=== PATIENT | female | born 1980 | race American Indian/Alaskan Native ===

== ENCOUNTER 2017-01-22 10:44 | Emergency (ER) | payer BC, OTHER ==
[2017-01-22 10:44] VITALS: BMI 31.8
[2017-01-22 11:08] VITALS: BP 146/66; PULSE 78; RESP 18; TEMP 98.4; O2SAT 99
[2017-01-22] MEDS ORDERED: Sodium Chloride 0.9% 1,000 ML IV STA (11:18)
--- NOTE | 2017-01-22 11:43 | ED PDOC ---
Arrival/HPI - General Chief Complaint: GI Problem Time Seen by Provider: 01/22/17 11:12 Historian: Patient - History of Present Illness Narrative History of Present Illness (Text): 01/22/17 11:13 A 36 year old female presents to the emergency department complaining of nausea , vomiting, abdominal pain and vaginal spotting since this morning. Patient reports vomit is non bloody non bilious and abdominal pain is localized to the epigastric region. Patient denies any fever, chest pain, diarrhea, or other complaints at this time. She notes her last menstrual cycle was 2 months ago. PMD: None Time/Duration: 1-3 hours Symptom Onset: Sudden Symptom Course: Unchanged Quality: Other Activities at Onset: Rest Context: Home Past Medical History - Provider Review Nursing Documentation Reviewed: Yes - Infectious Disease Hx of Infectious Diseases: None - Tetanus Immunization Tetanus Immunization: Unknown - Reproductive Menopause: No - Cardiac Hx Cardiac Disorders: (denies) - Pulmonary Hx Respiratory Disorders: (denies) - Neurological Hx Neurological Disorder: (denies) - HEENT Hx HEENT Disorder: (enies) - Renal Hx Renal Disorder: (denies) - Endocrine/Metabolic Hx Endocrine Disorders: (denies) - Hematological/Oncological Hx Blood Disorders: (denies) - Integumentary Hx Dermatological Disorder: (denies) - Musculoskeletal/Rheumatological Hx Musculoskeletal Disorders: (right ankle fx 04/22/2013) Hx Falls: Yes (fell today) - Gastrointestinal Hx Gastrointestinal Disorders: (denies) - Genitourinary/Gynecological Hx Genitourinary Disorders: (denies) - Psychiatric Hx Depression: No Hx Emotional Abuse: No Hx Physical Abuse: No Hx Substance Use: No - Anesthesia Hx Anesthesia: No - Suicidal Assessment Feels Threatened In Home Enviroment: No Family/Social History - Physician Review Nursing Documentation Reviewed: Yes Family/Social History: Unknown Family HX Smoking Status: Never Smoked Hx Alcohol Use: No (social) Hx Substance Use: No Hx Substance Use Treatment: No Allergies/Home Meds Allergies/Adverse Reactions: Allergies No Known Allergies Allergy (Verified 04/22/13 15:07) Home Medications: Home Meds Medication Instructions Recorded Confirmed No Known Home Med 01/22/17 01/22/17 Review of Systems - Physician Review All systems were reviewed & negative as marked: Yes - Review of Systems Constitutional: absent: Fevers Cardiovascular: absent: Chest Pain Gastrointestinal: Abdominal Pain, Nausea, Vomiting Genitourinary Female: Vaginal Bleeding Physical Exam Vital Signs Reviewed: Yes Vital Signs Temp Pulse Resp BP Pulse Ox 01/22/17 11:00 98.4 F 78 18 146/66 99 Temperature: Afebrile Blood Pressure: Normal Pulse: Regular Respiratory Rate: Normal Appearance: Positive for: Well-Appearing, Non-Toxic, Comfortable Pain Distress: None Mental Status: Positive for: Alert and Oriented X 3 - Systems Exam Head: Present: Atraumatic, Normocephalic Pupils: Present: PERRL Extroacular Muscles: Present: EOMI Conjunctiva: Present: Normal Mouth: Present: Moist Mucous Membranes Neck: Present: Normal Range of Motion Respiratory/Chest: Present: Clear to Auscultation, Good Air Exchange. No: Respiratory Distress, Accessory Muscle Use Cardiovascular: Present: Regular Rate and Rhythm, Normal S1, S2. No: Murmurs Abdomen: Present: Tenderness (mild epigastric tenderness with palpation), Normal Bowel Sounds. No: Distention, Peritoneal Signs Back: Present: Normal Inspection Upper Extremity: Present: Normal Inspection. No: Cyanosis, Edema Lower Extremity: Present: Normal Inspection. No: Edema Neurological: Present: GCS=15, CN II-XII Intact, Speech Normal Skin: Present: Warm, Dry, Normal Color. No: Rashes Psychiatric: Present: Alert, Oriented x 3, Normal Insight, Normal Concentration Medical Decision Making ED Course and Treatment: 01/22/17 11:13 Impression: A 36 year old female with abdominal pain, nausea, vomiting and vaginal spotting. Differential Diagnosis include but are not limited to: gastritis Plan: -- EKG -- Chest X-ray -- Labs -- Urinalysis -- Protonix, Zofran and IV Fluids -- Reassess and disposition Prior Visits: Notes and results from previous visits were reviewed. The patient last presented to the emergency department on 05/21/14 for evaluation of nausea, vomiting and weakness. Progress Notes: 01/22/17 12:00 Patient left without treatment. 01/22/17 13:40 pt elped from er prior to lab results - Lab Interpretations Lab Results: Lab Results 01/22/17 11:10: Urine Color Yellow, Urine Appearance Clear, Urine pH 6.0, Ur Specific [place] <= 1.005, Urine Protein Negative, Urine Glucose (UA) Negative, Urine Ketones Negative, Urine Blood Negative, Urine Nitrate Negative, Urine Bilirubin Negative, Urine Urobilinogen 0.2, Ur Leukocyte Esterase Negative, Urine HCG, Qual Negative I have reviewed the lab results: Yes - RAD Interpretation Radiology Orders: 01/22/17 11:17 CHEST PORTABLE [RAD] Stat - Medication Orders Current Medication Orders: Discontinued Medications Sodium Chloride (Sodium Chloride 0.9%) 1,000 mls @ 999 mls/hr IV .Q1H1M STA Stop: 01/22/17 12:18 Ondansetron HCl (Zofran Inj) 4 mg IVP STAT STA Stop: 01/22/17 11:18 Pantoprazole Sodium (Protonix Inj) 40 mg IVP STAT STA Stop: 01/22/17 11:18 - Scribe Statement The provider has reviewed the documentation as recorded by the Reinaldo Alberto Provider Scribe Attestation: All medical record entries made by the Scribe were at my direction and personally dictated by me. I have reviewed the chart and agree that the record accurately reflects my personal performance of the history, physical exam, medical decision making, and the department course for this patient. I have also personally directed, reviewed, and agree with the discharge instructions and disposition. Disposition/Present on Arrival - Present on Arrival Any Indicators Present on Arrival: No History of DVT/PE: No History of Uncontrolled Diabetes: No Urinary Catheter: No History of Decub. Ulcer: No History Surgical Site Infection Following: None - Disposition Have Diagnosis and Disposition been Completed?: Yes Diagnosis: Abdominal pain Disposition: ELOPEMENT - ER ONLY Disposition Time: 12:00 Condition: UNKNOWN
--- NOTE | 2017-01-22 11:54 | RAD ---
HISTORY: cp COMPARISON: Chest x-ray performed 04/22/13 TECHNIQUE: Chest, one view. FINDINGS: Examination limited by habitus and hypoinflation. LUNGS: No focal consolidation. Please note that chest x-ray has limited sensitivity for the detection of pulmonary masses. PLEURA: No significant pleural effusion identified. No definite pneumothorax . CARDIOVASCULAR: Heart size appears top normal. OSSEOUS STRUCTURES: No acute osseous abnormality identified. VISUALIZED UPPER ABDOMEN: Unremarkable. OTHER FINDINGS: None. IMPRESSION: No focal consolidation, significant pleural effusion, or definite pneumothorax identified.
[2017-01-22 12:15] LABS: URINE BILIRUBIN NEGATIVE (NEGATIVE); URINE BLOOD NEGATIVE (NEGATIVE); URINE GLUCOSE (UA) NEGATIVE (NEGATIVE); URINE KETONE NEGATIVE (NEGATIVE); URINE LEUKOCYTE ESTERASE NEGATIVE Leu/uL (NEGATIVE); URINE PROTEIN NEGATIVE mg/dL (<30 mg/dL); URINE UROBILINOGEN 0.2 E.U./dL (<1 E.U./dL)
[2017-01-22 12:19] LABS: URINE APPEARANCE CLEAR (CLEAR); URINE COLOR YELLOW (YELLOW)
== END 2017-01-22 11:56 | disposition left against medical advice (07) ==
LOC: ED 10:44
DX: R10.9 Unspecified abdominal pain (principal)

== ENCOUNTER 2017-04-02 02:11 | Emergency (ER) | payer OTHER ==
[2017-04-02 02:33] VITALS: O2SAT 99; BMI 31.4
--- NOTE | 2017-04-02 02:42 | ED PDOC ---
Arrival/HPI - General Historian: Patient - History of Present Illness Time/Duration: 24 hours Symptom Onset: Sudden Symptom Course: Worsening Quality: Cramping Severity Level: 7 Context: Sitting <Maria Victoria Copeland - Last Filed: 04/02/17 04:53> <MeyDana - Last Filed: 04/02/17 05:20> - General Chief Complaint: Lower Extremity Problem/Injury Time Seen by Provider: 04/02/17 02:23 - History of Present Illness Narrative History of Present Illness (Text): 04/02/17 02:43 Patient is a 26 y/o with pmh of dislocated right ankle presenting with b/l lower extremities edema for 1 day. patient states she was sitting in her living room when she felt b/l ankle pain, when she looked down she saw they were swollen. patient states the ankle pain extends to the leg as well, R>L. Patient denies h/o DVT/PEs, denies recent long distance travels, denies cp, sob, n/v/d, denies fever or chills. Denies h/o heart problems. Denies contraceptive use. States she's mostly sedentary. (Maria Victoria Copeland) Past Medical History - Provider Review Nursing Documentation Reviewed: Yes - Travel History Have you recently traveled outside [place] w/in the past 3 mons?: No - Past History Past History: No Previous - Infectious Disease Hx of Infectious Diseases: None - Tetanus Immunization Tetanus Immunization: Unknown - Cardiac Hx Cardiac Disorders: (denies) - Pulmonary Hx Respiratory Disorders: (denies) - Neurological Hx Neurological Disorder: (denies) - HEENT Hx HEENT Disorder: (enies) - Renal Hx Renal Disorder: (denies) - Endocrine/Metabolic Hx Endocrine Disorders: (denies) - Hematological/Oncological Hx Blood Disorders: (denies) - Integumentary Hx Dermatological Disorder: (denies) - Musculoskeletal/Rheumatological Hx Musculoskeletal Disorders: (right ankle fx 04/22/2013) Hx Falls: Yes (fell today) - Gastrointestinal Hx Gastrointestinal Disorders: (denies) - Genitourinary/Gynecological Hx Genitourinary Disorders: (denies) - Psychiatric Hx Depression: No Hx Emotional Abuse: No Hx Physical Abuse: No Hx Substance Use: No - Anesthesia Hx Anesthesia: No - Suicidal Assessment Feels Threatened In Home Enviroment: No <Maria Victoria Copeland - Last Filed: 04/02/17 04:53> Family/Social History Family/Social History: No Known Family HX Smoking Status: Never Smoked Hx Alcohol Use: No (social) Hx Substance Use: No Hx Substance Use Treatment: No <Maria Victoria Copeland - Last Filed: 04/02/17 04:53> Allergies/Home Meds <Maria Victoria Copeland - Last Filed: 04/02/17 04:53> <Dana Mathias - Last Filed: 04/02/17 05:20> Allergies/Adverse Reactions: Allergies No Known Allergies Allergy (Verified 04/02/17 02:38) Review of Systems - Review of Systems Constitutional: Normal Eyes: Normal ENT: Normal Respiratory: Normal Cardiovascular: Normal Gastrointestinal: Normal Genitourinary Female: Normal Musculoskeletal: Joint Swelling, Other (ankle and leg pain.) Skin: Normal Neurological: Normal Endocrine: Normal Hemo/Lymphatic: Normal Psychiatric: Normal <Maria Victoria Copeland - Last Filed: 04/02/17 04:53> Physical Exam Vital Signs Reviewed: Yes Temperature: Afebrile Blood Pressure: Normal Pulse: Regular Respiratory Rate: Normal Appearance: Positive for: Well-Appearing, Non-Toxic, Comfortable Pain Distress: None Mental Status: Positive for: Alert and Oriented X 3 - Systems Exam Head: Present: Atraumatic, Normocephalic Pupils: Present: PERRL Extroacular Muscles: Present: EOMI Conjunctiva: Present: Normal Mouth: Present: Dry Neck: Present: Normal Range of Motion Respiratory/Chest: Present: Clear to Auscultation, Good Air Exchange. No: Respiratory Distress, Accessory Muscle Use, Wheezes, Rales, Rhonchi, Tachypneic Cardiovascular: Present: Regular Rate and Rhythm, Normal S1, S2. No: Murmurs Abdomen: Present: Normal Bowel Sounds. No: Tenderness, Distention Upper Extremity: Present: Normal Inspection. No: Cyanosis, Edema Lower Extremity: Present: Edema (b/l ankle and legs. ), CALF TENDERNESS (on the right), NORMAL PULSES, Normal ROM (due to pain at the right ankle. ), Garrett's Sign (right + ), Tenderness (right ankle), Capillary Refill < 2 s. No: Erythema , Temperature Abnormalties Neurological: Present: GCS=15 Skin: Present: Warm, Dry, Normal Color. No: Rashes Psychiatric: Present: Alert, Oriented x 3, Normal Insight, Normal Concentration <Maria Victoria Copeland - Last Filed: 04/02/17 04:53> Medical Decision Making Re-evaluation Time: 04:30 Reassessment Condition: Improving,but remains with symptoms - Lab Interpretations I have reviewed the lab results: Yes Interpretation: All labs normal <Maria Victoria Copeland - Last Filed: 04/02/17 04:53> <Dana Mathias - Last Filed: 04/02/17 05:20> ED Course and Treatment: 04/02/17 02:53 Patient is 36 y/o with h/o right ankle dislocation presenting with b/l leg and ankle edema, and pain. R/O DVT, lymphedema, versus dependent edema, venous insufficiency, renal failure , liver cirrhosis versus trauma versus chf. Less likely cellulites. Plan: cbc, cmp, bnp, trop. ekg chest x-ray, right ankle x-ray b/l venous Doppler Tylenol for pain and reevaluate. Discussed with Dr Mathias. (Maria Victoria Copeland) 04/02/2017 03:45 Bilateral venous doppler results are negative. 04/02/17 05:19 Patient seen and examined with b/L ankle swelling. No pmhx except ankle injury. No cardiopulmonary complaints. Doppler negative. CBC unremarkable - will d/c o nsaid. (Dana Mathias) - Lab Interpretations Lab Results: 04/02/17 02:57 Lab Results 04/02/17 02:57: WBC 4.4 L D, RBC 3.74, Hgb 12.5, Hct 37.3, MCV 99.7, MCH 33.4, MCHC 33.5, RDW 13.7, Plt Count 234, MPV 8.8, Neutrophils % (Manual) 36 L, Band Neutrophils % 1, Lymphocytes % (Manual) 43 H, Monocytes % (Manual) 16 H, Eosinophils % (Manual) 2, Basophils % (Manual) 2 H, Platelet Evaluation Normal - RAD Interpretation Narrative RAD Interpretations (Text): 04/02/17 04:36 Right ankle x-ray with no fracture noted. Normal chest x-ray- no pleural effusion or pulm congestion. LE doppler with no DVTs. (Maria Victoria Copeland) Radiology Orders: 04/02/17 02:36 DUPLEX LOWER EXTRM VEIN BILAT [US] Stat 04/02/17 02:40 ANKLE RIGHT 3 VIEWS ROUTINE [RAD] Stat 04/02/17 02:46 CHEST PORTABLE [RAD] Stat - Medication Orders Current Medication Orders: Discontinued Medications Acetaminophen (Tylenol 325mg Tab) 650 mg PO STAT STA Stop: 04/02/17 02:40 Last Admin: 04/02/17 02:58 Dose: 650 mg - PA / OIL WINTERIZER / Resident Statement FELICITAS has reviewed & agrees with the documentation as recorded. FELICITAS has examined the patient and agrees with the treatment plan. <Dana Mathias - Last Filed: 04/02/17 05:20> Disposition/Present on Arrival - Present on Arrival Any Indicators Present on Arrival: No History of DVT/PE: No History of Uncontrolled Diabetes: No Urinary Catheter: No History of Decub. Ulcer: No History Surgical Site Infection Following: None - Disposition Have Diagnosis and Disposition been Completed?: Yes Disposition Time: 04:25 Patient Plan: Discharge <Maria Victoria Copeland - Last Filed: 04/02/17 04:53> <Dana Mathias - Last Filed: 04/02/17 05:20> - Disposition Diagnosis: Ankle pain, Leg edema Disposition: HOME/ ROUTINE Condition: STABLE Discharge Instructions (ExitCare): Leg Edema (ED), Swollen Joint (ED) Additional Instructions: Take Motrin as need for pain every 6 to 8 hrs. Keep your legs elevated, use compression stocking. Go tot he nearest emergency room if you experience chest pain, sob, fever. Prescriptions: Ibuprofen [Motrin] 600 mg PO Q6 PRN #30 tab PRN Reason: Pain, Moderate (4-7) Referrals: [facility] [place] [facility] [place] - Follow up with primary
[2017-04-02 03:05] LABS: HEMATOCRIT 37.3 % (36.0-48.0); MEAN CELL VOLUME 99.7 fL (80.0-105.0); MEAN CORPUSCULAR HEMOGLOBIN 33.4 pg (25.0-35.0); MEAN CORPUSCULAR HGB CONC 33.5 g/dl (31.0-37.0); MEAN PLATELET VOLUME 8.8 fl (7.0-11.0); PLATELET COUNT 234 10^3/uL (120.0-450.0); RED CELL DISTRIBUTION WIDTH 13.7 % (11.5-14.5); WHITE BLOOD COUNT 4.4 10^3/ul (4.5-11.0)
[2017-04-02 03:07] LABS: ADD MANUAL DIFF? YES
[2017-04-02 03:35] LABS: BAND 1 % (0-2); NEUTROPHIL 36 % (50.0-70.0)
[2017-04-02 03:36] LABS: BASOPHIL 2 % (0.0-1.0); EOSINOPHIL 2 % (0.0-3.0); PLATELET ESTIMATE NORMAL (NORMAL)
[2017-04-02 05:45] VITALS: BP 140/82; PULSE 66; RESP 181; TEMP 98.1
--- NOTE | 2017-04-02 09:12 | RAD ---
PROCEDURE: Right Ankle Radiographs. HISTORY: r/o fracture COMPARISON: None FINDINGS: BONES: Normal. No fracture. JOINTS: Normal. No osteoarthritis. Ankle mortise maintained. Talar dome intact SOFT TISSUES: Diffuse soft tissue swelling OTHER FINDINGS: None. IMPRESSION: No acute findings
--- NOTE | 2017-04-02 09:13 | RAD ---
HISTORY: edema COMPARISON: 01/22/2017 FINDINGS: LUNGS: No active pulmonary disease. PLEURA: No significant pleural effusion identified, no pneumothorax apparent. CARDIOVASCULAR: Normal. OSSEOUS STRUCTURES: No significant abnormalities. VISUALIZED UPPER ABDOMEN: Normal. OTHER FINDINGS: None. IMPRESSION: No active disease.
--- NOTE | 2017-04-02 11:56 | US ---
HISTORY: Leg pain and swelling. Evaluate for DVT PHYSICIAN(S): Alber Radford MD. TECHNIQUE: Duplex sonography and color-flow Doppler with graded compression were used to evaluate the deep venous systems of both lower extremities. FINDINGS: The visualized deep venous systems of both lower extremities are sonographically normal and compressible. Normal wave forms and augmentation are seen. There is no sonographic evidence for deep venous thrombosis in the visualized segments of both lower extremities. IMPRESSION: No sonographic evidence for deep venous thrombosis in the visualized segments of both lower extremities.
== END 2017-04-02 05:30 | disposition home or self-care (01) ==
LOC: ED 02:11
DX: R60.0 Localized edema (principal); M25.572 Pain in left ankle and joints of left foot; M25.571 Pain in right ankle and joints of right foot

== ENCOUNTER 2017-04-09 00:13 | Emergency (ER) | payer OTHER ==
[2017-04-09 00:15] VITALS: BMI 31.2
== END 2017-04-09 00:47 | disposition left against medical advice (07) ==
LOC: ED 00:13
DX: Z02.89 Encounter for other administrative examinations (principal); Z00.00 Encounter for general adult medical examination without abnormal findings

== ENCOUNTER 2017-11-30 22:25 | Emergency (ER) | payer OTHER ==
[2017-11-30 22:43] VITALS: BMI 33.5
[2017-11-30 22:49] VITALS: BP 109/74; PULSE 71; RESP 18; TEMP 97.6; O2SAT 100
--- NOTE | 2017-12-01 01:01 | ED PDOC ---
Arrival/HPI <Rainer Fall - Last Filed: 12/01/17 06:02> - General Historian: Patient, EMS - History of Present Illness Symptom Onset: Gradual Symptom Course: Unchanged Activities at Onset: Light Context: Street <Viviane Johnson - Last Filed: 12/04/17 04:19> - General Chief Complaint: Alcohol Ingestion Time Seen by Provider: 11/30/17 22:51 - History of Present Illness Narrative History of Present Illness (Text): 11/30/17 22:50 37 year old homeless female who presents to the ED brought in by EMS for homelessness. Patient states she is homeless and admits to drinking alcohol tonight. Patient states she was trying to get to [place] but missed the last bus. Patient denies any chest pain, shortness of breath, abdominal pain, or any other complaints. Patient requesting a place to stay. Per ems; pt was kicked off the bus for intoxication. (Viviane Johnson) Past Medical History - Provider Review Nursing Documentation Reviewed: Yes - Past History Past History: No Previous - Infectious Disease Hx of Infectious Diseases: None - Tetanus Immunization Tetanus Immunization: Unknown - Cardiac Hx Cardiac Disorders: (denies) - Pulmonary Hx Respiratory Disorders: (denies) - Neurological Hx Neurological Disorder: (denies) - HEENT Hx HEENT Disorder: (enies) - Renal Hx Renal Disorder: (denies) - Endocrine/Metabolic Hx Endocrine Disorders: (denies) - Hematological/Oncological Hx Blood Disorders: (denies) - Integumentary Hx Dermatological Disorder: (denies) - Musculoskeletal/Rheumatological Hx Musculoskeletal Disorders: (right ankle fx 04/22/2013) Hx Falls: Yes (fell today) - Gastrointestinal Hx Gastrointestinal Disorders: (denies) - Genitourinary/Gynecological Hx Genitourinary Disorders: (denies) - Psychiatric Hx Depression: No Hx Emotional Abuse: No Hx Physical Abuse: No Hx Substance Use: No - Anesthesia Hx Anesthesia: No - Suicidal Assessment Feels Threatened In Home Enviroment: No <Viviane Johnson - Last Filed: 12/04/17 04:19> Family/Social History - Physician Review Nursing Documentation Reviewed: Yes Family/Social History: Unknown Family HX Smoking Status: Never Smoked Hx Alcohol Use: Yes (social) Frequency of alcohol use: Daily Hx Substance Use: No Hx Substance Use Treatment: No <Anup Johnsonzoey Whitaker - Last Filed: 12/04/17 04:19> Allergies/Home Meds <Rainer Fall - Last Filed: 12/01/17 06:02> <Viviane Johnson Sherman - Last Filed: 12/04/17 04:19> Allergies/Adverse Reactions: Allergies No Known Allergies Allergy (Verified 11/30/17 22:48) Review of Systems - Physician Review All systems were reviewed & negative as marked: Yes - Review of Systems Constitutional: Normal. absent: Fevers Eyes: Normal ENT: Normal Respiratory: Normal. absent: SOB, Cough Cardiovascular: Normal. absent: Chest Pain Gastrointestinal: Normal. absent: Abdominal Pain, Diarrhea, Nausea, Vomiting Genitourinary Female: Normal. absent: Dysuria, Frequency, Hematuria, Urine Output Changes Musculoskeletal: Normal. absent: Back Pain, Neck Pain Skin: Normal. absent: Rash Neurological: Normal. absent: Headache, Dizziness Endocrine: Normal Hemo/Lymphatic: Normal Psychiatric: Normal <ElizabethViviane T - Last Filed: 12/04/17 04:19> Physical Exam Vital Signs Reviewed: Yes Temperature: Afebrile Blood Pressure: Normal Pulse: Regular Respiratory Rate: Normal Appearance: Positive for: Well-Appearing, Non-Toxic, Comfortable Pain Distress: None Mental Status: Positive for: Alert and Oriented X 3 - Systems Exam Head: Present: Atraumatic, Normocephalic Pupils: Present: PERRL Extroacular Muscles: Present: EOMI Conjunctiva: Present: Normal Mouth: Present: Moist Mucous Membranes Neck: Present: Normal Range of Motion Respiratory/Chest: Present: Clear to Auscultation, Good Air Exchange. No: Respiratory Distress, Accessory Muscle Use Cardiovascular: Present: Regular Rate and Rhythm, Normal S1, S2. No: Murmurs Abdomen: Present: Normal Bowel Sounds. No: Tenderness, Distention, Peritoneal Signs Back: Present: Normal Inspection Upper Extremity: Present: Normal Inspection. No: Cyanosis, Edema Lower Extremity: Present: Normal Inspection. No: Edema Neurological: Present: GCS=15, CN II-XII Intact, Speech Normal Skin: Present: Warm, Dry, Normal Color. No: Rashes Psychiatric: Present: Alert, Oriented x 3, Normal Insight, Normal Concentration <ElizabethAnupViviane T - Last Filed: 12/04/17 04:19> Vital Signs Temp Pulse Resp BP Pulse Ox 11/30/17 22:48 97.6 F 71 18 109/74 100 Medical Decision Making <Rainer Fall - Last Filed: 12/01/17 06:02> <Viviane Johnson - Last Filed: 12/04/17 04:19> ED Course and Treatment: 12/01/17 06:02 Pt awake, alert, ambulating with steady gait. In no acute distress, clinically sober. Pt stable for d/c. (Rainer Fall) 11/30/17 22:50 37yr old female biba for alcohol intoxication; pt alert and oriented; ambulating with steady gait; admits to drinking etoh today. requesting a place to day. fingerstick; 73 12/01/17 03:00 pt reassessment; pt alert and oriented; eating food in er. will continue to observe for sobriety. case signed out to dr. fall pending sobriety, re-evaluation and disposition. (Viviane Johnson) - Lab Interpretations Lab Results: Lab Results 12/01/17 00:59: POC Glucose (mg/dL) 73 - PA / EQUIPMENT MAN / Resident Statement MD/DO has reviewed & agrees with the documentation as recorded. MD/DO has examined the patient and agrees with the treatment plan. <Rainer Fall - Last Filed: 12/01/17 06:02> - Scribe Statement The provider has reviewed the documentation as recorded by the Scribe <Viviane Johnson - Last Filed: 12/04/17 04:19> - Scribe Statement Irene Elizabeth All medical record entries made by the Scribe were at my direction and personally dictated by me. I have reviewed the chart and agree that the record accurately reflects my personal performance of the history, physical exam, medical decision making, and the department course for this patient. I have also personally directed, reviewed, and agree with the discharge instructions and disposition. (Viviane Johnson) Disposition/Present on Arrival - Present on Arrival Any Indicators Present on Arrival: No - Disposition Have Diagnosis and Disposition been Completed?: Yes Disposition Time: 06:01 Patient Plan: Discharge <Rainer Fall - Last Filed: 12/01/17 06:02> - Present on Arrival Any Indicators Present on Arrival: No History of DVT/PE: No History of Uncontrolled Diabetes: No Urinary Catheter: No History of Decub. Ulcer: No History Surgical Site Infection Following: None - Disposition Have Diagnosis and Disposition been Completed?: Yes <Viviane Johnson - Last Filed: 12/04/17 04:19> - Disposition Diagnosis: ETOH abuse Disposition: HOME/ ROUTINE Condition: GOOD Discharge Instructions (ExitCare): Abuse of Alcohol (ED) Referrals: Khalif Escudero MD [Primary Care Provider] - Follow up with primary Alcoholics Anonymous [Outside] - Follow up with primary Forms: [facility] (Hebrew)
== END 2017-12-01 09:54 | disposition home or self-care (01) ==
LOC: ED 22:25
DX: F10.10 Alcohol abuse, uncomplicated (principal); Y90.9 Presence of alcohol in blood, level not specified

== ENCOUNTER 2019-03-09 03:01 | Emergency (ER) | payer OTHER ==
[2019-03-09 03:01] VITALS: BMI 33.5
[2019-03-09 03:11] VITALS: RESP 18; TEMP 98.3
--- NOTE | 2019-03-09 03:58 | ED PDOC ---
Arrival/HPI - General Historian: Patient - History of Present Illness Narrative History of Present Illness (Text): 03/09/19 03:58 Pt is a 38 yo female with a PMH alcoholism and homelessness who presents to the ED complaining of a syncopal event yesterday. Pt states she was at work and woke up on the ground. Pt does not remember falling, or if she hit her head. Pt did not have a post ictal phase after the event. Pt states this has never happened before. Pt denies nausea, vomiting, constipation, diarrhea. States she had some chest discomfort at the time of the event which has since resolved. Pt states she went to [facility] where she waited for 4 or 5 hours and was not given a room, so she left and [place] [facility] [place] Time/Duration: 24 hours Symptom Course: Improving Quality: Aching Severity Level: 5 Activities at Onset: Rest Context: Sitting <Khari Cerda - Last Filed: 03/09/19 06:26> <Julio Davis - Last Filed: 03/12/19 20:28> - General Chief Complaint: Syncope Past Medical History - Past History Past History: No Previous - Infectious Disease Hx of Infectious Diseases: None - Tetanus Immunization Tetanus Immunization: Unknown - Cardiac Hx Cardiac Disorders: (denies) - Pulmonary Hx Respiratory Disorders: (denies) - Neurological Hx Neurological Disorder: (denies) - HEENT Hx HEENT Disorder: (enies) - Renal Hx Renal Disorder: (denies) - Endocrine/Metabolic Hx Endocrine Disorders: (denies) - Hematological/Oncological Hx Blood Disorders: (denies) - Integumentary Hx Dermatological Disorder: (denies) - Musculoskeletal/Rheumatological Hx Musculoskeletal Disorders: Yes (right ankle fx 04/22/2013) Hx Falls: Yes - Gastrointestinal Hx Gastrointestinal Disorders: (denies) - Genitourinary/Gynecological Hx Genitourinary Disorders: (denies) - Psychiatric Hx Depression: No Hx Emotional Abuse: No Hx Physical Abuse: No Hx Substance Use: No - Anesthesia Hx Anesthesia: No - Suicidal Assessment Feels Threatened In Home Enviroment: No <Khari Cerda - Last Filed: 03/09/19 06:26> Family/Social History Family/Social History: No Known Family HX Smoking Status: Never Smoked Hx Alcohol Use: Yes (social) Frequency of alcohol use: Socially Hx Substance Use: No Hx Substance Use Treatment: No <Khari Cerda - Last Filed: 03/09/19 06:26> Allergies/Home Meds <Khari Cerda - Last Filed: 03/09/19 06:26> <RyanJulio - Last Filed: 03/12/19 20:28> Allergies/Adverse Reactions: Allergies No Known Allergies Allergy (Verified 03/09/19 03:12) Home Medications: Home Meds Medication Instructions Recorded Confirmed No Known Home Med 03/09/19 03/09/19 Review of Systems - Review of Systems Constitutional: Normal Eyes: Normal ENT: Normal Respiratory: Normal Cardiovascular: Normal Gastrointestinal: Normal Musculoskeletal: Normal Skin: Normal Neurological: Dizziness Endocrine: Normal Hemo/Lymphatic: Normal Psychiatric: Normal <Khari Cerda - Last Filed: 03/09/19 06:26> Physical Exam Vital Signs Reviewed: Yes Vital Signs Temp Pulse Resp BP Pulse Ox 03/09/19 03:09 98.3 F 88 18 128/61 98 Temperature: Afebrile Blood Pressure: Normal Pulse: Regular Respiratory Rate: Normal Appearance: Positive for: Well-Appearing Mental Status: Positive for: Alert and Oriented X 3 - Systems Exam Head: Present: Atraumatic, Normocephalic Pupils: Present: PERRL Extroacular Muscles: Present: EOMI Conjunctiva: Present: Normal Mouth: Present: Moist Mucous Membranes Neck: Present: Normal Range of Motion Respiratory/Chest: Present: Clear to Auscultation, Good Air Exchange. No: Respiratory Distress, Accessory Muscle Use Cardiovascular: Present: Regular Rate and Rhythm, Normal S1, S2 Abdomen: Present: Normal Bowel Sounds. No: Tenderness, Distention Upper Extremity: Present: Normal Inspection Lower Extremity: Present: Normal Inspection Neurological: Present: GCS=15, CN II-XII Intact Skin: Present: Warm, Dry Psychiatric: Present: Alert, Oriented x 3 <Claudette Cerdane Jamie - Last Filed: 03/09/19 06:26> Vital Signs Temp Pulse Resp BP Pulse Ox 03/09/19 03:09 98.3 F 88 18 128/61 98 <Julio Davis - Last Filed: 03/12/19 20:28> Medical Decision Making ED Course and Treatment: 03/09/19 04:05 CBC CMP CXR EKG Trop test CT head 03/09/19 06:24 CT head negative for acute pathology likely due to vaso vagal syncope Pt seen, examined, assessment and plan discussed with Dr Ryan Cerda PGY1 - RAD Interpretation Radiology Orders: 03/09/19 03:51 CHEST TWO VIEWS (PA/LAT) [RAD] Stat 03/09/19 03:53 HEAD W/O CONTRAST [CT] Stat <Khari Cerda - Last Filed: 03/09/19 06:26> ED Course and Treatment: Impression: 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 Aware and agree with HPI, clinical findings, plan, and management. Pt, whose past medical history includes alcoholism and homelessness, presented s/p syncopal episode yesterday. Plan: -- CT Head w/o contrast -- EKG -- Chest X-ray -- Labs, troponin -- Reassess and disposition - RAD Interpretation Radiology Orders: 03/09/19 03:51 CHEST TWO VIEWS (PA/LAT) [RAD] Stat 03/09/19 03:53 HEAD W/O CONTRAST [CT] Stat <Julio Davis - Last Filed: 03/12/19 20:28> - PA / DONOR RELATIONS OFFICER / Resident Statement / has reviewed & agrees with the documentation as recorded. / has examined the patient and agrees with the treatment plan. <Julio Davis - Last Filed: 03/12/19 20:28> Disposition/Present on Arrival - Present on Arrival Any Indicators Present on Arrival: No History of DVT/PE: No History of Uncontrolled Diabetes: No Urinary Catheter: No History of Decub. Ulcer: No History Surgical Site Infection Following: None - Disposition Have Diagnosis and Disposition been Completed?: Yes Disposition Time: 06:26 Patient Plan: Discharge <Khari Cerda - Last Filed: 03/09/19 06:26> <Julio Davis - Last Filed: 03/12/19 20:28> - Disposition Diagnosis: Syncope, vasovagal Disposition: HOME/ ROUTINE Condition: GOOD Discharge Instructions (ExitCare): Vasovagal Response, Syncope (ED) Forms: [employer] (Tajik), WORK NOTE
[2019-03-09 04:23] LABS: BASO # 0.02 K/mm3 (0.0-2.0); BASO % 0.5 % (0.0-3.0); EOS # 0.1 (0.0-0.7); EOS % 2.7 % (1.5-5.0); HEMOGLOBIN 11.4 g/dL (12.0-16.0); LYMPH # 1.9 (1.2-3.4); LYMPH % 51.9 % (22.0-35.0); MEAN CELL VOLUME 91.1 fl (80.0-105.0); MEAN CORPUSCULAR HEMOGLOBIN 29.1 pg (25.0-35.0); MEAN CORPUSCULAR HGB CONC 31.9 g/dl (31.0-37.0); MEAN PLATELET VOLUME 9.5 fl (7.0-11.0); MONO # 0.4 (0.1-0.6); MONO % 10.9 % (1.0-6.0); RBC 3.92 10^6/uL (3.5-6.1); RED CELL DISTRIBUTION WIDTH 14.7 % (11.5-14.5); WHITE BLOOD COUNT 3.7 10^3/uL (4.5-11.0)
[2019-03-09 04:56] LABS: TROPONIN I < 0.01 ng/mL
[2019-03-09 05:08] VITALS: BP 120/72; PULSE 74; O2SAT 97
[2019-03-09 05:25] LABS: ALB/GLOB RATIO 1.2 (1.1-1.8); ALBUMIN 3.9 g/dL (3.0-4.8); ALT/SGPT 35 U/L (7-56); AST/SGOT 91 U/L (14-36); BLOOD UREA NITROGEN 10 mg/dL (7-21); CALCIUM 8.7 mg/dL (8.4-10.5); GFR NON-AFRICAN AMERICAN > 60
--- NOTE | 2019-03-09 08:21 | RAD ---
Date of service: 03/09/2019 HISTORY: syncope COMPARISON: 04/02/2017 TECHNIQUE: Chest PA and lateral views FINDINGS: LUNGS: No active pulmonary disease. PLEURA: No significant pleural effusion identified. No pneumothorax apparent. CARDIOVASCULAR: No aortic atherosclerotic calcification present. Normal cardiac size. No pulmonary vascular congestion. OSSEOUS STRUCTURES: No significant abnormalities. VISUALIZED UPPER ABDOMEN: Normal. OTHER FINDINGS: None. IMPRESSION: No active disease.
--- NOTE | 2019-03-09 09:23 | CT ---
Date of service: 03/09/2019 PROCEDURE: CT HEAD WITHOUT CONTRAST. HISTORY: syncope/ fall COMPARISON: None available. TECHNIQUE: Axial computed tomography images were obtained through the head/brain without intravenous contrast. Radiation dose: Total exam DLP = 854.14 mGy-cm. This CT exam was performed using one or more of the following dose reduction techniques: Automated exposure control, adjustment of the mA and/or kV according to patient size, and/or use of iterative reconstruction technique. FINDINGS: HEMORRHAGE: No intracranial hemorrhage. BRAIN: No mass effect or edema. No atrophy or chronic microvascular ischemic changes. VENTRICLES: Unremarkable. No hydrocephalus. CALVARIUM: Unremarkable. PARANASAL SINUSES: Unremarkable as visualized. No significant inflammatory changes. MASTOID AIR CELLS: Unremarkable as visualized. No inflammatory changes. OTHER FINDINGS: The report concurs with the preliminary [facility] report IMPRESSION: Normal CT of the Head.
--- NOTE | 2019-03-09 10:03 | CARD ---
APPROVED REPORT Date of service: 03/09/2019 EKG Measurement Heart [id number] <Conclusion> Normal sinus rhythm Normal ECG
== END 2019-03-09 07:13 | disposition home or self-care (01) ==
LOC: ED 03:01
DX: R55 Syncope and collapse (principal); Z59.0 Homelessness